=== PATIENT | male | born 1960 | race Hispanic/Latino ===

== ENCOUNTER 2017-07-12 18:38 | Emergency (ER) | payer BC, OTHER ==
[2017-07-12] MEDS ORDERED: Albuterol-Ipratrop 3 mg / 0.5 (3 ml) UD IH STA (19:42)
[2017-07-12] MEDS ORDERED: guaiFENesin 200 mg/10 ml Syrup UD PO ONE (19:42)
--- NOTE | 2017-07-12 19:46 | ED PDOC ---
HPI: General Adult Time Seen by Provider: 07/12/17 19:28 Chief Complaint (Nursing): Flu-like Symptoms Chief Complaint (Provider): Cough History Per: Patient History/Exam Limitations: no limitations Onset/Duration Of Symptoms: Days (2) Additional Complaint(s): Patient is a 56 y/o male with a past medical history of asthma presenting to the emergency department for a cough since last night with associated nasal congestion, a low grade fever, and post-tussive vomiting. Reports that the cough is constant and causes him to vomit. Also notes chest pain with coughing but denies chest pain with exertion, shortness of breath, recent travel, leg pain or swelling, or other complaints. Of note, patient admits to smoking. PCP: none provided. Past Medical History Reviewed: Historical Data, Nursing Documentation, Vital Signs Vital Signs: Last Vital Signs Temp 99.8 F H 07/12/17 19:16 Pulse 122 H 07/12/17 19:16 Resp 18 07/12/17 19:16 BP 149/104 H 07/12/17 19:16 Pulse Ox 97 07/12/17 21:24 - Medical History PMH: Asthma - Family History Family History: States: Unknown Family Hx - Social History Current smoker - smoking cessation education provided: Yes (> 10 cigarettes per day) Ex-Smoker (has not smoked in the last 12 months): No Alcohol: Social Drugs: Denies - Home Medications Home Medications: Ambulatory Orders Medication Instructions Recorded Albuterol HFA [Ventolin HFA 90 2 puff IH Q4H #1 puff 04/10/16 mcg/actuation (8 g)] Azithromycin [Zithromax] 250 mg PO DAILY #6 tab 04/10/16 Promethazine/Codeine 5 ml PO Q8 #60 ml 04/10/16 [Codeine/Promethazine 10 MG/5 Ml-6.25 MG/5 Ml] Albuterol 0.083% [Albuterol 3 ml IH Q4 #100 neb 07/12/17 Sulfate 3 Ml] Albuterol HFA [Ventolin HFA 90 2 puff IH [id number] #1 puff 07/12/17 mcg/actuation (8 g)] Azithromycin [Z-Naveen] 250 mg PO DAILY #6 tab 07/12/17 Guaifenesin 400 mg PO QID #20 tablet 07/12/17 Ondansetron ODT [Zofran ODT] 4 mg PO DAILY PRN #20 odt 07/12/17 - Allergies Allergies/Adverse Reactions: Allergies Allergy/AdvReac Type Severity Reaction Status Date / Time No Known Allergies Allergy Verified 04/10/16 16:42 Review of Systems ROS Statement: Except As Marked, All Systems Reviewed And Found Negative Constitutional: Positive for: Fever (low grade) ENT: Positive for: Nose Congestion Cardiovascular: Positive for: Chest Pain (when coughing) Respiratory: Positive for: Cough (constant). Negative for: Shortness of Breath Gastrointestinal: Positive for: Vomiting (post-tussive) Musculoskeletal: Negative for: Leg Pain (or swelling) Physical Exam - Reviewed Nursing Documentation Reviewed: Yes Vital Signs Reviewed: Yes - Physical Exam Appears: Positive for: Well, Non-toxic, In Acute Distress (mild distress, is coughing) Head Exam: Positive for: ATRAUMATIC, NORMAL INSPECTION, NORMOCEPHALIC Skin: Positive for: Normal Color, Warm, Dry Eye Exam: Positive for: Normal appearance ENT: Positive for: Normal ENT Inspection. Negative for: Pharyngeal Erythema, Tonsillar Exudate Neck: Positive for: Normal, Painless ROM, Supple Cardiovascular/Chest: Positive for: Regular Rate, Rhythm. Negative for: Murmur Respiratory: Positive for: Decreased Breath Sounds, Wheezing (faint expiratory bilaterally), Respiratory Distress (mild), Other (speaking full sentences). Negative for: Normal Breath Sounds Gastrointestinal/Abdominal: Positive for: Normal Exam, Soft. Negative for: Tenderness Extremity: Positive for: Normal ROM. 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 Negative for : Motor/Sensory Deficits - ECG O2 Sat by Pulse Oximetry: 97 (RA) Pulse Ox Interpretation: Normal Medical Decision Making Medical Decision Making: Time: 19:42 Initial impression: Cough, nasal congestion, fever Initial plan: Albuterol 3 mL IH EKG Robitussin 400 mg PO Nebulizer treatment Peak flow assessment pre and post treatment Zofran 4 mg PO Chest X-ray Reevaluation EKG : ST at 101 bpm, (-) acute ST changes, as read by PA. CXR : NAD, as read by PA On reevaluation, patient is laying in bed comfortably in no acute distress. Breathing is easy and unlabored, patient speaking in full sentences. Repeat VS P94, BP 134/88 T98.6. On exam, lungs are clear to auscultation, no wheezing, no rhonchi, and breath sounds are equal bilaterally. Diagnostic results reviewed and discussed the patient detail. Diagnosis of bronchitis with asthma discussed with the patient. Based on history, exam and diagnostic results plan will be for outpatient follow -up. Follow up with primary care physician in 1-2 days without fail. Advised to take medication as prescribed. Return to the emergency room at any time for any new or worsening symptoms. Patient states he fully agrees with and understands discharge instructions. States that he agrees with the plan and disposition. Verbalized and repeated discharge instructions and plan. I have given the patient opportunity to ask any additional questions. ~ Scribe Attestation: Documented by Janet Willard, acting as a scribe for EDUARDO Salvador. Provider Scribe Attestation: All medical record entries made by the Scribe were at my direction and personally dictated by me. I have reviewed the chart and agree that the record accurately reflects my personal performance of the history, physical exam, medical decision making, and the department course for this patient. I have also personally directed, reviewed, and agree with the discharge instructions and disposition. Disposition - Clinical Impression Clinical Impression: Acute bronchitis, Asthma - Patient ED Disposition Is Patient to be Admitted: No Counseled Patient/Family Regarding: Studies Performed, Diagnosis, Need For Followup, Rx Given - Disposition Referrals: Gallo Chacon MD [Medical Doctor] - Disposition: Routine/Home Disposition Time: 21:10 Condition: IMPROVED Prescriptions: Albuterol HFA [Ventolin HFA 90 mcg/actuation (8 g)] 2 puff IH [id number] #1 puff Albuterol 0.083% [Albuterol Sulfate 3 Ml] 3 ml IH Q4 #100 neb Azithromycin [Z-Naveen] 250 mg PO DAILY #6 tab Guaifenesin 400 mg PO QID #20 tablet Ondansetron ODT [Zofran ODT] 4 mg PO DAILY PRN #20 odt PRN Reason: Nausea/Vomiting Instructions: Asthma (ED), Acute Bronchitis (ED) Forms: [employer] (Japanese), [facility] ED School/Work Excuse 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
[2017-07-12] MEDS ORDERED: guaiFENesin 100 mg/5 ml Syrup UD ONE (20:07)
[2017-07-12 22:47] VITALS: BP 134/88; PULSE 94; RESP 16; TEMP 98.6; O2SAT 97
--- NOTE | 2017-07-13 11:13 | RAD ---
HISTORY: cough COMPARISON: Chest radiograph dated 04/10/2016. TECHNIQUE: Chest PA and lateral FINDINGS: LUNGS: No active pulmonary disease. PLEURA: No significant pleural effusion identified. No pneumothorax apparent. CARDIOVASCULAR: Normal. OSSEOUS STRUCTURES: Unchanged. VISUALIZED UPPER ABDOMEN: Normal. OTHER FINDINGS: None. IMPRESSION: No active disease.
--- NOTE | 2017-07-13 18:05 | CARD ---
APPROVED REPORT EKG Measurement Heart [id number] <Conclusion> Sinus tachycardia Otherwise normal ECG
== END 2017-07-12 22:12 | disposition home or self-care (01) ==
LOC: H.ER 18:38
DX: J20.9 Acute bronchitis, unspecified (principal); J45.909 Unspecified asthma, uncomplicated; F17.210 Nicotine dependence, cigarettes, uncomplicated

== ENCOUNTER 2017-10-29 16:37 | Emergency (ER) | payer OTHER ==
[2017-10-29 17:00] VITALS: BP 150/83; PULSE 81; RESP 16; TEMP 98.5; O2SAT 97
[2017-10-29] MEDS ORDERED: Promethazine/Cod 6.25mg-10mg/5ml Syr UD PO STA (17:55)
--- NOTE | 2017-10-29 18:13 | ED PDOC ---
HPI: General Adult Time Seen by Provider: 10/29/17 17:07 Chief Complaint (Nursing): Chest Pain Chief Complaint (Provider): Chest pain, left eye redness/itching History Per: Patient History/Exam Limitations: no limitations Onset/Duration Of Symptoms: Days (since yesterday) Current Symptoms Are (Timing): Still Present Additional Complaint(s): 57 year old male, with past medical history of bronchitis and COPD, presented to ED with complaints of chest pain in lower ribs with onset of yesterday and erythematous and pruritus left eye since yesterday. He also had a complaint of a growth on his left shoulder which has been there for about a year. Patient reports he smokes every day, about half a pack a day, and coughs all the time but has not taken any medications. For the past few days, he was coughing more than usual which caused pain in his ribs. Patient denied fever, SOB, productive cough, left eye pain, or wearing contacts. PCP: none provided Past Medical History Reviewed: Historical Data, Nursing Documentation, Vital Signs Vital Signs: Last Vital Signs Temp 98.5 F 10/29/17 16:58 Pulse 81 10/29/17 16:58 Resp 16 10/29/17 16:58 BP 150/83 10/29/17 16:58 Pulse Ox 97 10/29/17 18:55 - Medical History PMH: Asthma, Bronchitis, COPD - Surgical History Surgical History: No Surg Hx - Family History Family History: States: Unknown Family Hx - Social History Current smoker - smoking cessation education provided: Yes (>10 cigarettes daily ) Alcohol: Social Drugs: Denies - Home Medications Home Medications: Ambulatory Orders Medication Instructions Recorded Albuterol HFA [Ventolin HFA 90 2 puff IH Q4H #1 puff 04/10/16 mcg/actuation (8 g)] Azithromycin [Zithromax] 250 mg PO DAILY #6 tab 04/10/16 Promethazine/Codeine 5 ml PO Q8 #60 ml 04/10/16 [Codeine/Promethazine 10 MG/5 Ml-6.25 MG/5 Ml] Albuterol 0.083% [Albuterol 3 ml IH Q4 #100 neb 07/12/17 Sulfate 3 Ml] Albuterol HFA [Ventolin HFA 90 2 puff IH [id number] #1 puff 07/12/17 mcg/actuation (8 g)] Azithromycin [Z-Naveen] 250 mg PO DAILY #6 tab 07/12/17 Guaifenesin 400 mg PO QID #20 tablet 07/12/17 Ondansetron ODT [Zofran ODT] 4 mg PO DAILY PRN #20 odt 07/12/17 - Allergies Allergies/Adverse Reactions: Allergies Allergy/AdvReac Type Severity Reaction Status Date / Time No Known Allergies Allergy Verified 10/29/17 16:58 Review of Systems ROS Statement: Except As Marked, All Systems Reviewed And Found Negative Constitutional: Negative for: Fever Eyes: Positive for: Redness (left eye redness and itchiness). Negative for: Pain (left eye pain), Other (contacts) Cardiovascular: Positive for: Chest Pain Respiratory: Negative for: Cough (productive cough), Shortness of Breath Skin: Positive for: Other (growth on left shoulder) Physical Exam - Reviewed Nursing Documentation Reviewed: Yes Vital Signs Reviewed: Yes - Physical Exam Appears: Positive for: Non-toxic, No Acute Distress Head Exam: Positive for: ATRAUMATIC, NORMAL INSPECTION, NORMOCEPHALIC Skin: Positive for: Normal Color, Warm (mass on left shoulder), Dry (left shoulder soft). Negative for: Rash (left shoulder tenderness, bleeding, redness , pigmentation) Eye Exam: Positive for: Normal appearance, EOMI, PERRL ENT: Positive for: Normal ENT Inspection Neck: Positive for: Normal, Painless ROM Cardiovascular/Chest: Positive for: Regular Rate, Rhythm. Negative for: Chest Non Tender (lower ribs/chest), Murmur Respiratory: Positive for: Normal Breath Sounds. Negative for: Wheezing, Respiratory Distress Gastrointestinal/Abdominal: Positive for: Normal Exam, Soft. Negative for: Tenderness Back: Positive for: Normal Inspection. Negative for: L CVA Tenderness, R CVA Tenderness, Vertebral Tenderness Extremity: Positive for: Normal ROM (upper/lower) Neurologic/Psych: Positive for: Alert, Oriented. Negative for: Motor/Sensory Deficits - ECG O2 Sat by Pulse Oximetry: 97 (RA) Pulse Ox Interpretation: Normal Medical Decision Making Medical Decision Making: Initial Impression: chest pain, cough, left eye redness, skin growth Differential diagnosis: CP - consider only musculoskeletal pain, bronchitis, red eye - conjunctivitis of left eye, skin growth - possible Lipoma Initial Plan: --EKG --Chest X-Ray --Ibuprofen 600mg PO --Promethazine 5mL PO Patient will be prescribed medication for conjunctivitis of left eye. Patient will also be referred to dsp engineer for possible lipoma. 18:14 Chest X-Ray FINDINGS: LUNGS: No active pulmonary disease. PLEURA: No significant pleural effusion identified. No pneumothorax apparent. CARDIOVASCULAR: No radiographic findings to suggest acute or significant cardiovascular disease. OSSEOUS STRUCTURES: No significant abnormalities. VISUALIZED UPPER ABDOMEN: Normal. OTHER FINDINGS: None. IMPRESSION: No active disease. No significant interval change compared to the prior examination(s). Scribe Attestation: Documented by Jose Quesada acting as a scribe for Lesa Ho MD. Provider Scribe Attestation: All medical record entries made by the Scribe were at my direction and personally dictated by me. I have reviewed the chart and agree that the record accurately reflects my personal performance of the history, physical exam, medical decision making, and the department course for this patient. I have also personally directed, reviewed, and agree with the discharge instructions and disposition. Disposition - Clinical Impression Clinical Impression: Chest pain, Conjunctivitis, Skin growth - Patient ED Disposition Is Patient to be Admitted: No Doctor Will See Patient In The: Office Counseled Patient/Family Regarding: Studies Performed, Diagnosis, Need For Followup - Disposition Referrals: Cornelio Ricks MD [Non-Staff] - [facility] [Outside] Disposition: Routine/Home Disposition Time: 19:13 Condition: GOOD Additional Instructions: Follow up with your PCP in 2-3 days. Return for worsening. Take your medications as instructed. Instructions: Acute Bronchitis, Lipoma , Conjunctivitis ([place])
[2017-10-29] MEDS ORDERED: Promethazine/Cod 6.25mg-10mg/5ml Syr UD ONE (18:22)
--- NOTE | 2017-10-29 18:52 | RAD ---
HISTORY: chest pain COMPARISON: June 25, 2017 TECHNIQUE: Chest PA and lateral FINDINGS: LUNGS: No active pulmonary disease. PLEURA: No significant pleural effusion identified. No pneumothorax apparent. CARDIOVASCULAR: No radiographic findings to suggest acute or significant cardiovascular disease. OSSEOUS STRUCTURES: No significant abnormalities. VISUALIZED UPPER ABDOMEN: Normal. OTHER FINDINGS: None. IMPRESSION: No active disease. No significant interval change compared to the prior examination(s).
== END 2017-10-29 19:25 | disposition home or self-care (01) ==
LOC: H.ER 16:37
DX: R07.89 Other chest pain (principal); H10.9 Unspecified conjunctivitis; L98.9 Disorder of the skin and subcutaneous tissue, unspecified; J44.9 Chronic obstructive pulmonary disease, unspecified; F17.210 Nicotine dependence, cigarettes, uncomplicated

== ENCOUNTER 2017-12-27 04:43 | Emergency (ER) | payer OTHER ==
--- NOTE | 2017-12-27 06:41 | ED PDOC ---
HPI: Back Time Seen by Provider: 12/27/17 04:57 Chief Complaint (Nursing): Back Pain Chief Complaint (Provider): Back Pain History Per: Patient History/Exam Limitations: no limitations Onset/Duration Of Symptoms: Hrs Current Symptoms Are (Timing): Still Present Additional Complaint(s): Eulogio Catalan is a 57 year old male with a past medical history of asthma and COPD who is presenting to the ED with complaints of left sided pain across the whole back and radiating to neck, onset when he woke up this morning. Patient states that he feels very stiff and painful near his neck which is exacerbated when moving his head. He also reports pain to his left scapula and states that he has not taken any medications for the pain. Patient denies any fall, injury, trauma, fever, chest pain, or cough. PMD: none provided Past Medical History Reviewed: Historical Data, Nursing Documentation, Vital Signs Vital Signs: Last Vital Signs Temp 98.0 F 12/27/17 04:57 Pulse 97 H 12/27/17 04:57 Resp 18 12/27/17 04:57 BP 142/103 H 12/27/17 04:57 Pulse Ox 99 12/27/17 04:57 - Medical History PMH: Asthma, Bronchitis, COPD - Surgical History Other surgeries: herniorrhahpy - Family History Family History: States: Unknown Family Hx - Social History Current smoker - smoking cessation education provided: Yes (heavy) Alcohol: Occasional Drugs: Denies - Home Medications Home Medications: Ambulatory Orders Medication Instructions Recorded Albuterol HFA [Ventolin HFA 90 2 puff IH Q4H #1 puff 04/10/16 mcg/actuation (8 g)] Azithromycin [Zithromax] 250 mg PO DAILY #6 tab 04/10/16 Promethazine/Codeine 5 ml PO Q8 #60 ml 04/10/16 [Codeine/Promethazine 10 MG/5 Ml-6.25 MG/5 Ml] Albuterol 0.083% [Albuterol 3 ml IH Q4 #100 neb 07/12/17 Sulfate 3 Ml] Albuterol HFA [Ventolin HFA 90 2 puff IH [id number] #1 puff 07/12/17 mcg/actuation (8 g)] Azithromycin [Z-Naveen] 250 mg PO DAILY #6 tab 07/12/17 Guaifenesin 400 mg PO QID #20 tablet 07/12/17 Ondansetron ODT [Zofran ODT] 4 mg PO DAILY PRN #20 odt 07/12/17 Albuterol Sulfate [Proair Hfa] 1 2 IH Q4 PRN #1 inh 10/29/17 Ofloxacin Ophth 0.3% [Ocuflox 1 drop OS Q4 #1 bottle 10/29/17 Ophth 0.3%] Promethazine/Codeine 5 ml PO Q6 PRN #50 ml 10/29/17 [Phenergan/Codeine Oral Syrup] Cyclobenzaprine [Cyclobenzaprine 10 mg PO TID #10 tab 12/27/17 HCl] Naproxen [Naprosyn] 500 mg PO Q12H #20 tab 12/27/17 - Allergies Allergies/Adverse Reactions: Allergies Allergy/AdvReac Type Severity Reaction Status Date / Time No Known Allergies Allergy Verified 10/29/17 16:58 Review of Systems ROS Statement: Except As Marked, All Systems Reviewed And Found Negative Constitutional: Negative for: Fever Cardiovascular: Negative for: Chest Pain Respiratory: Negative for: Cough Musculoskeletal: Positive for: Neck Pain, Back Pain Physical Exam - Reviewed Nursing Documentation Reviewed: Yes Vital Signs Reviewed: Yes - Physical Exam Appears: Positive for: Non-toxic, No Acute Distress Head Exam: Positive for: ATRAUMATIC, NORMAL INSPECTION, NORMOCEPHALIC Skin: Positive for: Normal Color, Warm, DRY Eye Exam: Positive for: EOMI, Normal appearance, PERRL ENT: Positive for: Normal ENT Inspection Neck: Negative for: Normal ((+) trouble lifting head, stiffness) Cardiovascular/Chest: Positive for: Regular Rate, Rhythm Respiratory: Positive for: CNT, Normal Breath Sounds Gastrointestinal/Abdominal: Positive for: Normal Exam, Soft Back: Positive for: Other (tenderness to the scapular region) Extremity: Positive for: Normal ROM. Negative for: Deformity Neurologic/Psych: Positive for: Alert, Oriented, Gait (normal). Negative for: Motor/Sensory Deficits - ECG O2 Sat by Pulse Oximetry: 99 (RA) Pulse Ox Interpretation: Normal Medical Decision Making Medical Decision Making: Time: 5:31 Plan: - --Toradol 60 mg IM --Tylenol 650 mg PO --Valium 5 mg PO 7:00 Patient will be signed out to Dr. Safran pending reevaluation. Scribe Attestation: Documented by, Lisette Chen acting as a scribe for Radha Otoole MD. Provider Scribe Attestation: All medical record entries made by the Scribe were at my direction and personally dictated by me. I have reviewed the chart and agree that the record accurately reflects my personal performance of the history, physical exam, medical decision making, and the department course for this patient. I have also personally directed, reviewed, and agree with the discharge instructions and disposition. Disposition - Clinical Impression Clinical Impression: Back strain - Patient ED Disposition Is Patient to be Admitted: Transfer of Care - Disposition Referrals: [facility] [Outside] Disposition: Transfer of Care Disposition Time: 07:00 Condition: FAIR Prescriptions: Cyclobenzaprine [Cyclobenzaprine HCl] 10 mg PO TID #10 tab Naproxen [Naprosyn] 500 mg PO Q12H #20 tab Instructions: Muscle Strain Forms: [employer] ([place]) Patient Signed Over To: Josef Solitario
[2017-12-27 07:52] VITALS: RESP 19
--- NOTE | 2017-12-27 08:07 | ED PDOC ---
- ECG O2 Sat by Pulse Oximetry: 98 - Progress Re-evaluation Time: 10:24 Condition: Improved Medical Decision Making Medical Decision Makin:00 -Patient was endorsed to me by Dr. Otoole, pending reevaluation Disposition - Clinical Impression Clinical Impression: Back strain - POA Present On Arrival: None - Disposition Referrals: [facility] [Outside] Disposition: Routine/Home Disposition Time: 10:24 Condition: FAIR Prescriptions: Cyclobenzaprine [Cyclobenzaprine HCl] 10 mg PO TID #10 tab Naproxen [Naprosyn] 500 mg PO Q12H #20 tab Instructions: Muscle Strain Forms: [employer] [employer] (S[place])
[2017-12-27 10:57] VITALS: BP 128/78; PULSE 78; TEMP 97
[2017-12-30 22:19] VITALS: O2SAT 99
== END 2017-12-27 10:58 | disposition home or self-care (01) ==
LOC: H.ER 04:43
DX: S39.012A Strain of muscle, fascia and tendon of lower back, initial encounter (principal); Y92.89 Other specified places as the place of occurrence of the external cause
CPT/HCPCS: 96372; 99282; J1885

== ENCOUNTER 2018-06-19 09:24 | Emergency (ER) | payer OTHER ==
[2018-06-19 09:34] VITALS: BMI 25.8
[2018-06-19 09:36] VITALS: RESP 20
[2018-06-19 09:52] VITALS: O2SAT 98
[2018-06-19] MEDS ORDERED: Albuterol-Ipratrop 3 mg / 0.5 (3 ml) UD IH STA ×2 (09:56→09:57)
--- NOTE | 2018-06-19 10:07 | ED PDOC ---
HPI: Chest Pain Time Seen by Provider: 06/19/18 09:49 Chief Complaint (Nursing): Chest Pain Chief Complaint (Provider): Chest Pain History Per: Patient Onset/Duration Of Symptoms: Days (x2 days) Additional Complaint(s): Eulogio Catalan is a 57 year old male with a past medical history of COPD and bronchitis, who presents to the emergency department complaining of cough productive of green sputum, associated with chest pain on cough and inspiration, x2 days. Patient states he started smoking cigarettes again after stopping for a few months. He also complains of shortness of breath but denies fever. PMD: No provider Past Medical History Reviewed: Historical Data, Nursing Documentation, Vital Signs Vital Signs: Last Vital Signs Temp 98.4 F 06/19/18 09:35 Pulse 91 H 06/19/18 09:35 Resp 20 06/19/18 09:35 BP 143/72 06/19/18 09:35 Pulse Ox 98 06/19/18 09:43 - Medical History PMH: Asthma, Bronchitis, COPD - Surgical History Surgical History: No Surg Hx - Family History Family History: States: Unknown Family Hx - Home Medications Home Medications: Ambulatory Orders Medication Instructions Recorded Albuterol HFA [Ventolin HFA 90 2 puff IH Q4H #1 puff 04/10/16 mcg/actuation (8 g)] Azithromycin [Zithromax] 250 mg PO DAILY #6 tab 04/10/16 Promethazine/Codeine 5 ml PO Q8 #60 ml 04/10/16 [Codeine/Promethazine 10 MG/5 Ml-6.25 MG/5 Ml] Albuterol 0.083% [Albuterol 3 ml IH Q4 #100 neb 07/12/17 Sulfate 3 Ml] Albuterol HFA [Ventolin HFA 90 2 puff IH [id number] #1 puff 07/12/17 mcg/actuation (8 g)] Azithromycin [Z-Naveen] 250 mg PO DAILY #6 tab 07/12/17 Guaifenesin 400 mg PO QID #20 tablet 07/12/17 Ondansetron ODT [Zofran ODT] 4 mg PO DAILY PRN #20 odt 07/12/17 Albuterol Sulfate [Proair Hfa] 1 2 IH Q4 PRN #1 inh 10/29/17 Ofloxacin Ophth 0.3% [Ocuflox 1 drop OS Q4 #1 bottle 10/29/17 Ophth 0.3%] Promethazine/Codeine 5 ml PO Q6 PRN #50 ml 10/29/17 [Phenergan/Codeine Oral Syrup] Cyclobenzaprine [Cyclobenzaprine 10 mg PO TID #10 tab 12/27/17 HCl] Naproxen [Naprosyn] 500 mg PO Q12H #20 tab 12/27/17 Albuterol HFA [Ventolin HFA 90 2 puff IH Q4H #1 puff 06/19/18 mcg/actuation (8 g)] Azithromycin [Zithromax] 250 mg PO DAILY #6 tab 06/19/18 Benzonatate [Tessalon Perle] 100 mg PO Q8 #10 capsule 06/19/18 Methylprednisolone [Medrol Dose 4 mg PO DAILY #21 tab 06/19/18 Pack (21 tabs)] - Allergies Allergies/Adverse Reactions: Allergies Allergy/AdvReac Type Severity Reaction Status Date / Time No Known Allergies Allergy Verified 06/19/18 09:42 Review of Systems ROS Statement: Except As Marked, All Systems Reviewed And Found Negative Constitutional: Negative for: Fever Cardiovascular: Positive for: Chest Pain Respiratory: Positive for: Cough, Shortness of Breath, Sputum (green) Physical Exam - Reviewed Nursing Documentation Reviewed: Yes Vital Signs Reviewed: Yes - Physical Exam Appears: Positive for: Non-toxic, No Acute Distress Head Exam: Positive for: ATRAUMATIC, NORMOCEPHALIC Skin: Positive for: Normal Color Eye Exam: Positive for: Normal appearance ENT: Positive for: Normal ENT Inspection Cardiovascular/Chest: Positive for: Regular Rate, Rhythm. Negative for: Murmur Respiratory: Positive for: Decreased Breath Sounds, Rhonchi (scattered rhonchi ). Negative for: Respiratory Distress - Laboratory Results Result Diagrams: 06/19/18 10:00 06/19/18 10:00 - ECG O2 Sat by Pulse Oximetry: 98 (RA) Pulse Ox Interpretation: Normal Medical Decision Making Medical Decision Making: Time: 957 Plan: EKG shoes NSR with no acute ST changes. Chest pain does not appear to be cardiac in nature and more likely due to exacerbation of COPD or bronchitis. Will obtain chest x-ray and treat with nebulizers and steroids. --VBG shock panel --CMP --Troponin I --CBC with differential --Chest xray --Albuterol 3ml IH x3 --Solu-medrol 125 mg IVP --Peak flowpre/post treatment Chest x-ray FINDINGS: LUNGS: No interval consolidation. The patchy vague tiny opacities left inferolateral are similar appearance with prior chest x-rays and chronic pleural parenchymal pathology here perhaps areas of focal pleural thickening and/or low-density ple ural plaques are a consideration. The blunted left costophrenic angle is a chronic finding unchanged with the 04/10/2016 chest x-ray as well. No CT chest studies for correlation available. A low-density rounded opacity projects over the right lung base and also over the current posterior right 9th rib. This may represent a nipple shadow. A pulmonary nodules not excluded. Indexes suspicion is low. There is equivocal color appearance on a 2016 chest x-ray. PLEURA: No interval pleural effusion. No pneumothorax seen. CARDIOVASCULAR: There is absence of aortic atherosclerotic calcification on x-ray. Normal cardiac size. No significant appearing pulmonary venous congestion. OSSEOUS STRUCTURES: Thoraco lumbar spondylosis. VISUALIZED UPPER ABDOMEN: Normal. OTHER FINDINGS: None. IMPRESSION: No interval pathology noted. Findings concerning with granulomatous and/or chronic appearing pleural parenchymal low-density plaques as above. Other findings as above.. Clinical correlation and follow-up recommended. Scribe Attestation: Documented by Leland Bone, acting as a scribe for Josef Solitario MD. Provider Scribe Attestation: All medical record entries made by the Scribe were at my direction and personally dictated by me. I have reviewed the chart and agree that the record accurately reflects my personal performance of the history, physical exam, medical decision making, and the department course for this patient. I have also personally directed, reviewed, and agree with the discharge instructions and disposition. Disposition - Clinical Impression Clinical Impression: Acute bronchitis, COPD (chronic obstructive pulmonary disease) - Patient ED Disposition Is Patient to be Admitted: No Counseled Patient/Family Regarding: Studies Performed, Diagnosis, Need For Followup, Rx Given - Disposition Referrals: [facility] [Outside] Disposition: Routine/Home Disposition Time: 11:21 Condition: FAIR Prescriptions: Albuterol HFA [Ventolin HFA 90 mcg/actuation (8 g)] 2 puff IH Q4H #1 puff Azithromycin [Zithromax] 250 mg PO DAILY #6 tab Benzonatate [Tessalon Perle] 100 mg PO Q8 #10 capsule Methylprednisolone [Medrol Dose Pack (21 tabs)] 4 mg PO DAILY #21 tab Instructions: Acute Bronchitis, Exacerbation of COPD Forms: [facility] (Bulgarian), [facility] ED School/Work Excuse
[2018-06-19 10:18] LABS: ALB/GLOB RATIO 1.2 (1.0-2.1); ALBUMIN 4.3 g/dL (3.5-5.0); ALT/SGPT 25 U/L (21-72); AST/SGOT 34 U/L (17-59); BLOOD UREA NITROGEN 9 mg/dl (9-20); CALCIUM 9.1 mg/dL (8.4-10.2); GFR NON-AFRICAN AMERICAN > 60
[2018-06-19 10:25] LABS: BASO # 0.1 K/uL (0.0-0.2); BASO % 1.3 % (0.0-2.0); EOS # 0.2 K/uL (0.0-0.7); EOS % 3.1 % (0.0-4.0); HEMOGLOBIN 15.3 g/dL (12.0-18.0); LYMPH # 2.7 K/uL (1.0-4.3); LYMPH % 42.8 % (20.0-40.0); MEAN CELL VOLUME 92.9 fl (80.0-94.0); MEAN CORPUSCULAR HGB CONC 32.3 g/dL (33.0-37.0); MEAN PLATELET VOLUME 8.1 fl (7.2-11.7); MONO # 0.4 K/uL (0.0-0.8); MONO % 6.5 % (0.0-10.0); NEUT # 2.9 K/uL (1.8-7.0); NEUT % 46.3 % (50.0-75.0); NRBC % 0.2 % (0.0-0.0); RBC 5.09 Mil/uL (4.40-5.90); RED CELL DISTRIBUTION WIDTH 14.4 % (11.5-14.5); WHITE BLOOD COUNT 6.2 K/uL (4.8-10.8)
[2018-06-19] MEDS ORDERED: Albuterol-Ipratrop 3 mg / 0.5 (3 ml) UD ONE (10:25)
--- NOTE | 2018-06-19 10:38 | RAD ---
Date of service: 06/19/2018 HISTORY: cough COMPARISON: 10/29/2017 TECHNIQUE: Chest PA and lateral FINDINGS: LUNGS: No interval consolidation. The patchy vague tiny opacities left inferolateral are similar appearance with prior chest x-rays and chronic pleural parenchymal pathology here perhaps areas of focal pleural thickening and/or low-density pleural plaques are a consideration. The blunted left costophrenic angle is a chronic finding unchanged with the 04/10/2016 chest x-ray as well. No CT chest studies for correlation available. A low-density rounded opacity projects over the right lung base and also over the current posterior right 9th rib. This may represent a nipple shadow. A pulmonary nodules not excluded. Indexes suspicion is low. There is equivocal color appearance on a 2016 chest x-ray. PLEURA: No interval pleural effusion. No pneumothorax seen. CARDIOVASCULAR: There is absence of aortic atherosclerotic calcification on x-ray. Normal cardiac size. No significant appearing pulmonary venous congestion. OSSEOUS STRUCTURES: Thoraco lumbar spondylosis. VISUALIZED UPPER ABDOMEN: Normal. OTHER FINDINGS: None. IMPRESSION: No interval pathology noted. Findings concerning with granulomatous and/or chronic appearing pleural parenchymal low-density plaques as above. Other findings as above.. Clinical correlation and follow-up recommended.
[2018-06-19 12:31] VITALS: BP 120/78; PULSE 80; TEMP 98.3
== END 2018-06-19 12:31 | disposition home or self-care (01) ==
LOC: H.ER 09:24
DX: J20.9 Acute bronchitis, unspecified (principal); J44.0 Chronic obstructive pulmonary disease with (acute) lower respiratory infection; Z79.899 Other long term (current) drug therapy
CPT/HCPCS: 71046; 80053; 84484; 85025; 96374; 99284; J2930

== ENCOUNTER 2018-08-24 07:45 | Emergency (ER) | payer OTHER ==
[2018-08-24 07:46] VITALS: BMI 25.8
[2018-08-24 07:49] VITALS: TEMP 98
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
--- NOTE | 2018-08-24 09:47 | CT ---
Date of service: 08/24/2018 PROCEDURE: CT HEAD WITHOUT CONTRAST. HISTORY: r/o ICH COMPARISON: None available. TECHNIQUE: Axial computed tomography images were obtained through the head/brain without intravenous contrast. Radiation dose: Total exam DLP = 924.01 mGy-cm. This CT exam was performed using one or more of the following dose reduction techniques: Automated exposure control, adjustment of the mA and/or kV according to patient size, and/or use of iterative reconstruction technique. FINDINGS: HEMORRHAGE: No intracranial hemorrhage. BRAIN: No mass effect or edema. Mild atrophy. Mild chronic microvascular ischemic changes. VENTRICLES: Unremarkable. No hydrocephalus. CALVARIUM: Unremarkable. PARANASAL SINUSES: Unremarkable as visualized. No significant inflammatory changes. MASTOID AIR CELLS: Unremarkable as visualized. No inflammatory changes. OTHER FINDINGS: High right parietal scalp swelling. IMPRESSION: High right parietal scalp swelling. No calvarial fracture. No acute intracranial pathology. Mild age-related changes.
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
[2018-08-24 10:28] VITALS: BP 135/94; PULSE 79; RESP 18
[2018-08-24 10:33] VITALS: O2SAT 99
== END 2018-08-24 12:28 | disposition home or self-care (01) ==
LOC: H.ER 07:45
DX: M54.9 Dorsalgia, unspecified (principal); S16.1XXA Strain of muscle, fascia and tendon at neck level, initial encounter; V43.62XA Car passenger injured in collision with other type car in traffic accident, initial encounter; Y92.410 Unspecified street and highway as the place of occurrence of the external cause; J44.9 Chronic obstructive pulmonary disease, unspecified; Z79.899 Other long term (current) drug therapy
CPT/HCPCS: 70450; 72125; 72131; 96372; 99283; J1885